=== PATIENT | female | born 1995 | race Asian ===

== ENCOUNTER 2016-12-05 11:21 | Emergency (ER) | payer BC ==
[~2016-12-05] VITALS: Ht 167.6 cm; Wt 62.1 kg
[2016-12-05 11:29] VITALS: BP 136/85; PULSE 78; TEMP 36.6; O2SAT 97; Ht 167.6 cm; Wt 62.1 kg
[2016-12-05] MEDS ORDERED: BCPILLS PO (11:42)
[2016-12-05] MEDS ORDERED: CLR10 PO (11:42)
[2016-12-05] MEDS ORDERED: CEPH500C PO (11:57)
[2016-12-05] MEDS ORDERED: BCTCR/30 EXT (11:57)
--- NOTE | 2016-12-05 15:12 | EMERGENCY ROOM VISIT NOTE ---
ED Visit Note First contact with patient: 11:40 I have personally evaluated and examined this patient. I agree with assessment and plan of Joseph Osborn PA-C.
--- NOTE | 2016-12-11 17:33 | EMERGENCY ROOM VISIT NOTE ---
History First contact with patient: 11:40 Chief Complaint: RASH Stated Complaint: RASH AROUND MOUTH History of Present Illness The patient is a 21 year old female who presents to the Emergency Room with complaints of female in both sides of the corners of her mouth for the last 6 days. Has been getting worse with time. She initially thought it was due to a facial cream, wash, or ointment. She has just been washing her face with water. It continues to spread. She denies any known food allergies. No prior history of similar rash. She states it is very itchy. She has been using some topical Benadryl cream with mild improvement of the itching. Redness and swelling of the rash have not improved. She denies any involvement of the interior mucosa. She states it is difficult to open her mouth wide due to cracking at the corners of her mouth. She denies any drainage. No fevers, chills, or sweats. Review of Systems REVIEW OF SYSTEM: HEENT: No dizziness, visual problems, hearing loss, or tinnitus. There is no difficulty swallowing and no oral lesions are present. LYMPH: No adenopathy. PULMONARY: No cough, shortness of breath, sputum production or hemoptysis. CARDIOVASCULAR: No chest pain, palpitations, shortness of breath or peripheral edema. GASTROINTESTINAL: No diarrhea, constipation, nausea, vomiting, or abdominal pain. GENITOURINARY: No dysuria, frequency, urgency or nocturia. NEUROLOGIC: No weakness, muscle tenderness, epilepsy or history of neurological problems. MUSCULOSKELETAL: No history of joint tenderness/swelling. No history of arthritis or arthralgias. SKIN: No previous rashes or lesions. PSYCHIATRIC: No history of depression or mental illness. ENDOCRINE: No history of diabetes, thyroid disorders, or abnormal hair growth. Past Medical/Surgical History Previous surgeries: None Medical History: Benign Family History Benign. Parents are living. Social History Smoking Status: Never Smoker Smokeless Tobacco Use: No Alcohol Use: occasionally Drug Use: none Marital Status: single Housing Status: lives with roommate Occupation Status: [employer] student Current/Historical Medications Scheduled Control Pills ( Control Pills), 1 TAB PO DAILY Cephalexin Monohydrate (Keflex), 500 MG PO TID Loratadine (Claritin), 10 MG PO DAILY Mupirocin 2% (Bactroban 2%), 1 APPLN EXT BID Allergies Coded Allergies: No Known Allergies (Unverified , 12/05/16) Physical Exam Vital Signs Date Time Temp Pulse Resp B/P Pulse Ox O2 Delivery O2 Flow Rate FiO2 12/05/16 11:29 36.6 78 20 136/85 97 Room Air Physical Exam Gen.: Well-developed, well-nourished, young female, in no acute distress. Sitting on a bed. Alert and oriented. Skin:Warm and dry with good turgor. Red crusting rash present at the corners of her mouth on both sides. Minor cracking noted in the corners on both sides. Mild erythema and ecchymosis extending to her chin and submental area on the left side. Very mild edema is present as well. No honey-colored crusting. No active bleeding. The patient is not diaphoretic. No abrasions. No significant warmth. HEENT: Normocephalic atraumatic. Eyes PERRLA, EOMI. No conjunctiva or scleral injection. Nares patent bilaterally without turbinate enlargement. No significant drainage. No epistaxis. Oropharynx without erythema or exudate. Uvula midline, oral mucosa moist. No lesions present. Good dentition. No dental abscess. Teeth are not loose. No involvement on the inner mucosa. Lymphatics are palpated without anterior or posterior chain enlargement or tenderness. She does have submental enlargement. Medical Decision & Procedures ED Course Patient was educated regarding today's findings. Conservative care measures were discussed. Watch the area daily with soap and water. Apply Bactroban ointment daily. Additional prescription was provided for Keflex 500 mg 3 times a day 5 days to minimize any risk for cellulitis. Follow-up with [facility] this week or return to the ED for reevaluation. Return sooner for any worsening of symptoms. Start ibuprofen 600 mg every 6 hours with food until swelling and redness resolved. Adult Impetigo handout was provided. Patient was seen in conjunction with Dr. Clements, who also evaluated the patient and concurred with today's diagnosis and treatment plan. Medical Decision Possibility of dental abscess, cellulitis, impetigo, food reaction, allergic reaction, and eczema were considered, among others Impression Primary Impression: Impetigo Departure Information Dispostion Home / Self-Care Prescriptions Cephalexin Monohydrate (Keflex) 500 Mg Cap 500 MG PO TID, #15 CAP Prov: Joseph Osborn,P.A. 12/05/16 Mupirocin 2% (Bactroban 2%) 30 Gm Cr 1 APPLN EXT BID for 10 Days, #1 TUBE Prov: Joseph Osborn,P.A. 12/05/16 Referrals No Doctor, Assigned [facility] Forms WORK / SCHOOL INSTRUCTIONS, HOME CARE DOCUMENTATION FORM, MOTRIN USE, IMPORTANT VISIT INFORMATION Patient Instructions Impetigo, [facility] Additional Instructions Wash the area daily with soap and water Apply Bactroban ointment to the area 2 times per day Start Keflex one pill 3 times a day 5 days Follow-up with [facility] or return to the ED if symptoms do not improve Start ibuprofen 600 mg every 6 hours with food until redness and swelling resolve
== END 2016-12-05 12:10 | disposition home or self-care (01) ==
LOC: C.EDB 11:23 → C.EDD 12:10
DX: L01.00 Impetigo, unspecified (principal)

== ENCOUNTER 2017-08-24 12:06 | Emergency (ER) | payer BC, OTHER ==
[~2017-08-24] VITALS: Ht 167.6 cm; Wt 62.6 kg
[~2017-08-24 12:06] MED LIST: BCPILLS PO; CLR10 PO
[2017-08-24 12:17] VITALS: Ht 167.6 cm; Wt 62.6 kg
[2017-08-24] MEDS ORDERED: ACETAMINOPHEN 325 MG TAB PO STA (12:32)
[2017-08-24 13:17] LABS: BASO % 0.1 %; BASO ABS # 0.01 K/uL (0-0.2); EOS % 0.3 %; EOS ABS # 0.02 K/uL (0-0.5); HEMATOCRIT 37.2 % (37-47); HEMOGLOBIN 12.6 g/dL (12.0-16.0); IG# 0.02 K/uL (0.00-0.02); LYMPH % 25.5 %; LYMPH ABS # 1.76 K/uL (1.2-3.4); MEAN CELL VOLUME 88.8 fL (80-100); MEAN CORPUSCULAR HEMOGLOBIN 30.1 pg (25-34); MEAN CORPUSCULAR HGB CONC 33.9 g/dl (32-36); MEAN PLATELET VOLUME 10.5 fL (7.4-10.4); MONO % 6.5 %; MONO ABS # 0.45 K/uL (0.11-0.59); NEUT % 67.3 %; NEUT ABS # 4.65 K/uL (1.4-6.5); PLATELET COUNT 176 K/uL (130-400); RED CELL DISTRIBUTION WIDTH CV 13.3 % (11.5-14.5); RED CELL DISTRIBUTION WIDTH SD 43.3 fL (36.4-46.3); WHITE BLOOD COUNT 6.91 K/uL (4.8-10.8)
[2017-08-24 13:35] LABS: CALCIUM 9.1 mg/dl (8.5-10.1); CREATININE 0.73 mg/dl (0.60-1.20); POTASSIUM 3.1 mmol/L (3.5-5.1)
--- NOTE | 2017-08-24 13:37 | DIAGNOSTIC IMAGING REPORT ---
CHEST 2 VIEWS ROUTINE HISTORY: 22 years-old Female eval for pna acute cough with chills and sweating COMPARISON: None available TECHNIQUE: PA and lateral views of the chest FINDINGS: Cardiomediastinal and hilar silhouettes are within normal limits. No pneumothorax or pleural effusion. Patchy alveolar opacities with central air bronchograms noted within the right lower lobe. Left lung is clear. Bones appear grossly intact. IMPRESSION: Patchy alveolar opacities with central air bronchograms within the right lower lobe compatible with pneumonia. The above report was generated using voice recognition software. It may contain grammatical, syntax or spelling errors. Electronically signed by: Abran Rodríguez M.D. 08/24/2017 1:35 PM Dictated Date/Time: 08/24/2017 1:34 PM
[2017-08-24] MEDS ORDERED: POTASSIUM CHLORIDE 10 MEQ TABCR PO STA (13:47)
[2017-08-24] MEDS ORDERED: AZITHROMYCIN 250 MG TAB PO STA (13:47)
[2017-08-24 13:49] VITALS: TEMP 37.8
[2017-08-24 14:09] LABS: INFLUENZA B ANTIGEN Neg for Influ B (NEG)
[2017-08-24] MEDS ORDERED: AZIT250T PO (14:19)
[2017-08-24 14:41] VITALS: BP 109/78; PULSE 102; O2SAT 97
--- NOTE | 2017-08-24 15:28 | EMERGENCY ROOM VISIT NOTE ---
History Report prepared by Juarez: Josh Arambula Under the Supervision of: Dr. Shaheed Amanda M.D. 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 She notes the symptoms peaked August 02, 2017 and have since worsened over the last week. She is experiencing tactile fevers which she describes as hot flashes. She denies any sore throat. She notes a recent loss of appetite. She denies any body aches. She denies any headaches, though states that when she experiences a coughing fit, her head begins to hurt. She denies any chest pain, shortness of breath, nausea, or vomiting. She notes that she has not yet been seen by her PCP for her symptoms. She denies any underlying medical problems. She denies any chance of . Source of History: patient Onset: mid-July 2017 Position: other (global ) Quality: other (coughing ) Timing: other (persistent) Associated Symptoms: No headache, No sorethroat, No chest pain, No SOB, No nausea, No vomiting Note: She is experiencing tactile fevers which she describes as hot flashes. She notes a recent loss of appetite. She denies any body aches. Review of Systems See HPI for pertinent positives & negatives. A total of 10 systems reviewed and were otherwise negative. Past Medical & Surgical No pertinent past medical or past surgical history reported. Family History No pertinent family history Social History Smoking Status: Never Smoker Alcohol Use: occasionally (1 per month) Drug Use: none Marital Status: single Housing Status: lives with roommate Occupation Status: [employer] student Current/Historical Medications Scheduled Azithromycin (Zithromax), 250 MG PO DAILY Control Pills ( Control Pills), 1 TAB PO DAILY Allergies Coded Allergies: No Known Allergies (Unverified , 08/24/17) Physical Exam Vital Signs Date Time Temp Pulse Resp B/P (MAP) Pulse Ox O2 Delivery O2 Flow Rate FiO2 08/24/17 14:41 102 20 109/78 97 Room Air 08/24/17 13:49 37.8 102 22 105/68 97 Room Air 08/24/17 12:17 37.5 121 17 116/71 96 Room Air Physical Exam Constitutional: Vital signs reviewed. Coughing throughout examination. Eyes: Pupils are equal round reactive to light. Conjunctiva are noninjected. ENT: Pharynx is clear without erythema or exudate. Mucous membranes are moist. Neck supple without meningeal signs. Respiratory: Clear to auscultation bilaterally. Breath sounds are equal bilaterally. Cardiovascular: Tachycardic rate at 118 and regular rhythm. No rubs or gallops. GI: Soft, nondistended and nontender. Bowel sounds are present. Musculoskeletal: No peripheral edema. No lower extremity tenderness. Integumentary: No cyanosis. Neurological: The patient is awake and alert. No focal deficits. Psychiatric: Normal affect. Medical Decision & Procedures ER Provider Diagnostic Interpretation: Radiology results as stated below per my review and the radiologist's interpretation: CHEST 2 VIEWS ROUTINE HISTORY: 22 years-old Female eval for pna acute cough with chills and sweating COMPARISON: None available TECHNIQUE: PA and lateral views of the chest FINDINGS: Cardiomediastinal and hilar silhouettes are within normal limits. No pneumothorax or pleural effusion. Patchy alveolar opacities with central air bronchograms noted within the right lower lobe. Left lung is clear. Bones appear grossly intact. IMPRESSION: Patchy alveolar opacities with central air bronchograms within the right lower lobe compatible with pneumonia. The above report was generated using voice recognition software. It may contain grammatical, syntax or spelling errors. Electronically signed by: Abran Rodríguez M.D. 08/24/2017 1:35 PM Dictated Date/Time: 08/24/2017 1:34 PM Laboratory Results 08/24/17 12:50 Red Blood Count 4.19, Mean Corpuscular Volume 88.8, Mean Corpuscular Hemoglobin 30.1, Mean Corpuscular Hemoglobin Concent 33.9, Mean Platelet Volume 10.5, Neutrophils (%) (Auto) 67.3, Lymphocytes (%) (Auto) 25.5, Monocytes (%) (Auto) 6.5, Eosinophils (%) (Auto) 0.3, Basophils (%) (Auto) 0.1, Neutrophils # (Auto) 4.65, Lymphocytes # (Auto) 1.76, Monocytes # (Auto) 0.45, Eosinophils # (Auto) 0.02, Basophils # (Auto) 0.01 08/24/17 12:50 Test 08/24/17 12:32 08/24/17 12:50 08/24/17 13:00 White Blood Count 6.91 K/uL (4.8-10.8) Red Blood Count 4.19 M/uL (4.2-5.4) Hemoglobin 12.6 g/dL (12.0-16.0) Hematocrit 37.2 % (37-47) Mean Corpuscular Volume 88.8 fL (80-100) Mean Corpuscular Hemoglobin 30.1 pg (25-34) Mean Corpuscular Hemoglobin Concent 33.9 g/dl (32-36) Platelet Count 176 K/uL (130-400) Mean Platelet Volume 10.5 fL (7.4-10.4) Neutrophils (%) (Auto) 67.3 % Lymphocytes (%) (Auto) 25.5 % Monocytes (%) (Auto) 6.5 % Eosinophils (%) (Auto) 0.3 % Basophils (%) (Auto) 0.1 % Neutrophils # (Auto) 4.65 K/uL (1.4-6.5) Lymphocytes # (Auto) 1.76 K/uL (1.2-3.4) Monocytes # (Auto) 0.45 K/uL (0.11-0.59) Eosinophils # (Auto) 0.02 K/uL (0-0.5) Basophils # (Auto) 0.01 K/uL (0-0.2) RDW Standard Deviation 43.3 fL (36.4-46.3) RDW Coefficient of Variation 13.3 % (11.5-14.5) Immature Granulocyte % (Auto) 0.3 % Immature Granulocyte # (Auto) 0.02 K/uL (0.00-0.02) Urine Color YELLOW Urine Appearance CLEAR (CLEAR) Urine pH 6.0 (4.5-7.5) Urine Specific Anton 1.010 (1.000-1.030) Urine Protein NEG (NEG) Urine Glucose (UA) NEG (NEG) Urine Ketones NEG (NEG) Urine Occult Blood 1+ (NEG) Urine Nitrite NEG (NEG) Urine Bilirubin NEG (NEG) Urine Urobilinogen NEG (NEG) Urine Leukocyte Esterase NEG (NEG) Urine WBC (Auto) 1-5 /hpf (0-5) Urine RBC (Auto) 0-4 /hpf (0-4) Urine Hyaline Casts (Auto) 0 /lpf (0-5) Urine Epithelial Cells (Auto) 20-30 /lpf (0-5) Urine Bacteria (Auto) NEG (NEG) Anion Gap 5.0 mmol/L (3-11) Est Creatinine Clear Calc Drug Dose 113.1 ml/min Estimated GFR () 135.5 Estimated GFR (Non- 116.9 BUN/Creatinine Ratio 8.7 (10-20) Calcium Level 9.1 mg/dl (8.5-10.1) Influenza Type A Antigen Neg for Influ A (NEG) Influenza Type B Antigen Neg for Influ B (NEG) Laboratory results as reviewed by me. Medications Administered Medications (Trade) Dose Ordered Sig/Chikis Route Start Time Stop Time Status Last Admin Dose Admin Acetaminophen (Tylenol Tab) 650 mg NOW STAT PO 08/24/17 12:32 08/24/17 12:49 DC 08/24/17 13:24 650 MG Azithromycin (Zithromax Tab) 500 mg NOW STAT PO 08/24/17 13:47 08/24/17 13:48 DC 08/24/17 14:38 500 MG Potassium Chloride (Klor-Con M10) 40 meq NOW STAT PO 08/24/17 13:47 08/24/17 13:48 DC 08/24/17 14:38 40 MEQ ED Course 1229: The patient was evaluated in room A12B. A complete history and physical exam was performed. 1232: Ordered Tylenol 650 mg PO 1347: Ordered Potassium Chloride 40 meq PO and Azithromycin 500 mg PO 1355: I reassessed the patient at this time. Her heart rate is now 95. 1415: I reassessed the patient at this time. She is feeling better and resting comfortably. I discussed the results and treatment plan with the patient. I answered all pertaining questions that she had. She expressed understanding and verbalized agreement. The patient will be discharged home. Medical Decision This is a 22-year-old female presents with cough. Differential diagnosis includes pneumonia, bronchitis, URI, dehydration, SIRS. I did perform a limited focused review of portions of the patient's old chart on the electronic medical record. The patient has had no recent pertinent visits to this hospital. I did evaluate the patient as noted above. IV access was established. The patient was placed on a continuous air sampling and monitoring. I did treat patient with Tylenol. I did order and personally review the patient's chest x-ray as described above. She does have a right-sided pneumonia. I did order and review the patient's blood work as noted in the electronic medical record. Her potassium is 2.1. I did treat her with oral potassium 40 mEq. She was also given Zithromax 500 mg. Her flu swab is negative. I did discuss the testicles with the patient. Her tachycardia resolved. I did discharge her with a prescription for Zithromax. She will follow up with her doctor. She was discharged in good condition. Medication Reconcilliation Current Medication List: was personally reviewed by me Blood Pressure Screening Patient's blood pressure: Normal blood pressure Impression Primary Impression: Right lower lobe pneumonia Additional Impression: Hypokalemia Scribe Attestation The scribe's documentation has been prepared under my direct and personally reviewed by me in its entirety. I confirm that the note above accurately reflects all work, treatment, procedures, and medical decision making performed by me. Departure Information Dispostion Home / Self-Care Prescriptions Azithromycin (Zithromax) 250 Mg Tab 250 MG PO DAILY, #4 TAB Prov: Shaheed Amanda M.D. 08/24/17 Referrals Faustina Lemus M.D. (PCP) Forms HOME CARE DOCUMENTATION FORM, IMPORTANT VISIT INFORMATION Patient Instructions Hypokalemia Dc, My [facility], Pneumonia Dc Additional Instructions You have been examined and treated today on an emergency basis only. This is not a substitute for, or an effort to provide, complete comprehensive medical care. It is impossible to recognize and treat all injuries or illnesses in a single emergency department visit. It is therefore important that you follow up closely with [facility]. Call as soon as possible for an appointment. Return for worsening symptoms or if you develop chest pain, shortness of breath, vomiting, or any other concerning symptoms. Problem Qualifiers Primary Impression: Right lower lobe pneumonia Pneumonia type: due to unspecified organism Qualified Codes: J18.1 - Lobar pneumonia, unspecified organism
== END 2017-08-24 14:40 | disposition home or self-care (01) ==
LOC: C.EDB 12:08 → C.EDA 14:40
DX: J18.9 Pneumonia, unspecified organism (principal); E87.6 Hypokalemia